=== PATIENT | male | born 1975 | race Caucasian/White ===

== ENCOUNTER 2020-08-08 16:34 | Inpatient (IN) | payer SELFPAY ==
[~2020-08-08] VITALS: Ht 188 cm; Wt 114.5 kg
[2020-08-08 16:45] VITALS: BP 124/88
[2020-08-08 17:25] LABS: HEMATOCRIT 51.3 % (42.0-52.0); MEAN CELL VOLUME 89.7 fl (80.0-94.0); MEAN CORPUSCULAR HGB 29.9 pg (27.0-31.0); MEAN CORPUSCULAR HGB CONC 33.3 g/dl (33.0-37.0); MEAN PLATELET VOLUME 11.8 fl (9.6-12.3); PLATELET COUNT AUTOMATED 172 10*3/uL (130-400); RED BLOOD COUNT 5.72 10*6/uL (4.50-5.90); RED CELL DISTRI WIDTH 11.9 % (0-14.5); WHITE BLOOD COUNT 5.4 10*3/uL (4.8-10.8)
[2020-08-08 17:36] LABS: ARTERIAL BLOOD GAS PH 7.46 (7.35-7.45); ARTERIAL BLOOD GAS PO2 81.1 (80-90)
[2020-08-08 17:36] LABS: INTERNATIONAL NORM RATIO 1.1 (2.0-3.5)
[2020-08-08 17:40] LABS: ALBUMIN 2.9 gm/dl (3.1-4.5); ALKALINE PHOSPHATASE 74 U/L (45-117); BUN 15 mg/dl (7-24); CHLORIDE 101 mmol/L (98-107); CREATININE 0.83 mg/dL (0.70-1.30); POTASSIUM 3.3 mmol/L (3.5-5.1); SGOT/AST 41 IU/L (3-35); SGPT/ALT 53 U/L (12-78); SODIUM 137 mmol/L (136-145); TOTAL PROTEIN 8.3 gm/dL (6.4-8.2)
[2020-08-08 17:43] LABS: TROPONIN I < 0.015 ng/ml (<0.045)
[2020-08-08 17:55] LABS: ATYPICAL LYMPHS 6 % (0-0); PLATELET SUFFICIENCY NORMAL (NORMAL); TOTAL CELLS COUNTED 100 #CELLS
[2020-08-08 17:56] LABS: BURR CELLS FEW
[2020-08-08 18:04] VITALS: BP 113/76
[2020-08-08 18:21] VITALS: BP 128/94
[2020-08-08 20:24] VITALS: BP 128/90
[2020-08-09] VITALS (12 sets, daily range): BP systolic 115–141; BP diastolic 54–92
[2020-08-09 05:28] LABS: INTERNATIONAL NORM RATIO 1.2 (2.0-3.5)
[2020-08-09 05:35] LABS: ALBUMIN 2.7 gm/dl (3.1-4.5); ALKALINE PHOSPHATASE 69 U/L (45-117); BUN 16 mg/dl (7-24); CHLORIDE 101 mmol/L (98-107); CHOLESTEROL 124 mg/dL (<200); CREATININE 0.76 mg/dL (0.70-1.30); LDL CHOLESTEROL 69 mg/dL (9-159); POTASSIUM 3.7 mmol/L (3.5-5.1); SGOT/AST 31 IU/L (3-35); SGPT/ALT 47 U/L (12-78); SODIUM 135 mmol/L (136-145); TRIGLYCERIDES 100 mg/dl (<150)
[2020-08-09 05:37] LABS: FREE T4 1.47 ng/dl (0.76-1.46)
[2020-08-09 05:42] LABS: THYROID STIM HORMONE (HS) 0.448 uIU/ml (0.358-4.75)
[2020-08-09 05:57] LABS: HEMATOCRIT 46.7 % (42.0-52.0); MEAN CELL VOLUME 88.6 fl (80.0-94.0); MEAN CORPUSCULAR HGB 30.2 pg (27.0-31.0); PLATELET COUNT AUTOMATED 190 10*3/uL (130-400); RED BLOOD COUNT 5.27 10*6/uL (4.50-5.90); RED CELL DISTRI WIDTH 11.7 % (0-14.5); WHITE BLOOD COUNT 2.9 10*3/uL (4.8-10.8)
[2020-08-09 06:58] LABS: VITAMIN D, 25-HYDROXY 8.5 ng/mL (30-100)
[2020-08-09 07:17] LABS: ATYPICAL LYMPHS 3 % (0-0); PLATELET SUFFICIENCY NORMAL (NORMAL); TOTAL CELLS COUNTED 100 #CELLS
[2020-08-10] VITALS: BP 129/80
[2020-08-10 06:06] LABS: BUN 19 mg/dl (7-24); CHLORIDE 102 mmol/L (98-107); CREATININE 0.64 mg/dL (0.70-1.30); POTASSIUM 3.8 mmol/L (3.5-5.1); SODIUM 135 mmol/L (136-145)
[2020-08-10 06:25] LABS: HEMATOCRIT 48.2 % (42.0-52.0); MEAN CELL VOLUME 90.4 fl (80.0-94.0); MEAN CORPUSCULAR HGB 29.6 pg (27.0-31.0); MEAN CORPUSCULAR HGB CONC 32.8 g/dl (33.0-37.0); MEAN PLATELET VOLUME 12.1 fl (9.6-12.3); PLATELET COUNT AUTOMATED 217 10*3/uL (130-400); RED BLOOD COUNT 5.33 10*6/uL (4.50-5.90); RED CELL DISTRI WIDTH 11.5 % (0-14.5); WHITE BLOOD COUNT 4.3 10*3/uL (4.8-10.8)
[2020-08-10 07:37] LABS: ATYPICAL LYMPHS 2 % (0-0); TOTAL CELLS COUNTED 100 #CELLS
[2020-08-10 07:38] LABS: BURR CELLS FEW; PLATELET SUFFICIENCY NORMAL (NORMAL)
[2020-08-10 08:00] VITALS: BP 91/71
[2020-08-10 12:00] VITALS: BP 130/90
[2020-08-10 16:21] VITALS: BP 137/81
[2020-08-10 20:00] VITALS: BP 124/65
[2020-08-11] VITALS: BP 137/81
[2020-08-11 06:43] LABS: BASO % 0.3 % (0.0-1.0); HEMATOCRIT 47.2 % (42.0-52.0); LYMPH # 0.5 10*3/uL (1.3-4.4); LYMPH % 12.7 % (27.0-41.0); MEAN CELL VOLUME 88.9 fl (80.0-94.0); MEAN CORPUSCULAR HGB 29.8 pg (27.0-31.0); MEAN CORPUSCULAR HGB CONC 33.5 g/dl (33.0-37.0); MEAN PLATELET VOLUME 11.8 fl (9.6-12.3); MONO # 0.3 10*3/uL (0.1-1.0); MONO % 7.1 % (3.0-9.0); NEUT # 3.1 10*3/uL (2.3-7.9); NEUT % 79.4 % (47.0-73.0); PLATELET COUNT AUTOMATED 239 10*3/uL (130-400); RED BLOOD COUNT 5.31 10*6/uL (4.50-5.90); RED CELL DISTRI WIDTH 11.6 % (0-14.5)
[2020-08-11 07:01] LABS: ALBUMIN 2.8 gm/dl (3.1-4.5); BUN 20 mg/dl (7-24); CHLORIDE 98 mmol/L (98-107); CREATININE 0.71 mg/dL (0.70-1.30); LDH 272 U/L (87-241); POTASSIUM 3.9 mmol/L (3.5-5.1); SGOT/AST 37 IU/L (3-35); SODIUM 137 mmol/L (136-145); TOTAL PROTEIN 7.6 gm/dL (6.4-8.2)
[2020-08-11 07:05] LABS: ALKALINE PHOSPHATASE 62 U/L (45-117); CPK 26 U/L (39-308); SGPT/ALT 56 U/L (12-78)
[2020-08-11 08:00] VITALS: BP 133/87
[2020-08-11 12:00] VITALS: BP 134/82; BP 156/70
[2020-08-11 16:00] VITALS: BP 118/54
[2020-08-11 20:00] VITALS: BP 139/84
[2020-08-12] VITALS: BP 134/79
[2020-08-12 07:54] LABS: EOS % 0.2 % (1.0-4.0); HEMATOCRIT 46.7 % (42.0-52.0); LYMPH # 0.7 10*3/uL (1.3-4.4); LYMPH % 13.2 % (27.0-41.0); MEAN CELL VOLUME 88.4 fl (80.0-94.0); MEAN CORPUSCULAR HGB 29.7 pg (27.0-31.0); MEAN CORPUSCULAR HGB CONC 33.6 g/dl (33.0-37.0); MEAN PLATELET VOLUME 11.6 fl (9.6-12.3); MONO # 0.4 10*3/uL (0.1-1.0); MONO % 8.6 % (3.0-9.0); NEUT # 3.9 10*3/uL (2.3-7.9); NEUT % 77.4 % (47.0-73.0); PLATELET COUNT AUTOMATED 285 10*3/uL (130-400); RED BLOOD COUNT 5.28 10*6/uL (4.50-5.90); RED CELL DISTRI WIDTH 11.4 % (0-14.5); WHITE BLOOD COUNT 5.1 10*3/uL (4.8-10.8)
[2020-08-12 08:00] VITALS: BP 144/71
[2020-08-12 08:09] LABS: ALBUMIN 2.9 gm/dl (3.1-4.5); ALKALINE PHOSPHATASE 62 U/L (45-117); BUN 17 mg/dl (7-24); CHLORIDE 101 mmol/L (98-107); CPK 26 U/L (39-308); CREATININE 0.72 mg/dL (0.70-1.30); LDH 223 U/L (87-241); POTASSIUM 4.4 mmol/L (3.5-5.1); SGOT/AST 56 IU/L (3-35); SGPT/ALT 86 U/L (12-78); SODIUM 137 mmol/L (136-145); TOTAL PROTEIN 7.6 gm/dL (6.4-8.2)
[2020-08-12 12:00] VITALS: BP 130/86
[2020-08-12 16:00] VITALS: BP 132/76
[2020-08-12 20:00] VITALS: BP 137/73
[2020-08-13] VITALS: BP 144/83
[2020-08-13 06:18] LABS: BASO % 0.2 % (0.0-1.0); EOS % 0.2 % (1.0-4.0); HEMATOCRIT 47.6 % (42.0-52.0); LYMPH # 0.8 10*3/uL (1.3-4.4); LYMPH % 17.5 % (27.0-41.0); MEAN CELL VOLUME 88.8 fl (80.0-94.0); MEAN CORPUSCULAR HGB 30.2 pg (27.0-31.0); MEAN PLATELET VOLUME 11.6 fl (9.6-12.3); MONO # 0.4 10*3/uL (0.1-1.0); MONO % 9.1 % (3.0-9.0); NEUT # 3.3 10*3/uL (2.3-7.9); NEUT % 71.9 % (47.0-73.0); PLATELET COUNT AUTOMATED 280 10*3/uL (130-400); RED BLOOD COUNT 5.36 10*6/uL (4.50-5.90); RED CELL DISTRI WIDTH 11.5 % (0-14.5); WHITE BLOOD COUNT 4.6 10*3/uL (4.8-10.8)
[2020-08-13 06:43] LABS: BUN 14 mg/dl (7-24); CHLORIDE 103 mmol/L (98-107); CREATININE 0.62 mg/dL (0.70-1.30); POTASSIUM 4.1 mmol/L (3.5-5.1); SGOT/AST 44 IU/L (3-35); SGPT/ALT 94 U/L (12-78); SODIUM 136 mmol/L (136-145); TOTAL PROTEIN 7.5 gm/dL (6.4-8.2)
[2020-08-13 06:45] LABS: ALKALINE PHOSPHATASE 68 U/L (45-117); CPK 29 U/L (39-308); LDH 225 U/L (87-241)
[2020-08-13 08:00] VITALS: BP 150/89
[2020-08-13 12:00] VITALS: BP 144/83
[2020-08-13] MEDS ORDERED: DECADRON6 M1 PO ×2 (12:27→12:32)
[2020-08-13] MEDS ORDERED: METFORMIN HYDR500 MG PO ×2 (12:27→12:32)
[2020-08-13] MEDS ORDERED: VITAMIN D31250 MCG PO (12:28)
== END 2020-08-13 15:30 | disposition home or self-care (01) | DRG 177 ==
LOC: ED 16:34 → EDHOLD 18:54 → 4E 18:54
PROVIDERS: Internal Medicine; Physician Assistant; Registered Nurse; Student in an Organized Health Care Education/Training Program; ADMIT Emergency Medicine; ATTEND Emergency Medicine
PROC: XW033E5 Introduction of Remdesivir Anti-infective into Peripheral Vein, Percutaneous Approach, New Technology Group 5 (ICD-10-PCS; principal; 2020-08-08)
DX: U07.1 COVID-19 (principal); J96.01 Acute respiratory failure with hypoxia; J12.82 Pneumonia due to coronavirus disease 2019; E44.1 Mild protein-calorie malnutrition; I10 Essential (primary) hypertension; E87.6 Hypokalemia; E55.9 Vitamin D deficiency, unspecified; E66.9 Obesity, unspecified; E11.65 Type 2 diabetes mellitus with hyperglycemia; R74.01 Elevation of levels of liver transaminase levels; Z99.81 Dependence on supplemental oxygen; Z68.31 Body mass index [BMI] 31.0-31.9, adult; Z79.52 Long term (current) use of systemic steroids